=== PATIENT | female | born 1950 | race Caucasian/White ===

== ENCOUNTER 2017-06-25 05:32 | Day surgery (SDC) | payer BC ==
[2017-06-24 12:20] LABS: BASOPHILS 0.1 % (0-2); EOSINOPHILS 1.1 % (0-7); HEMATOCRIT 40.8 % (36.0-48.0); HEMOGLOBIN 14.2 g/dL (12-16); IMMATURE GRANULOCYTES 0.3 % (0-5); LYMPHOCYTES 23.7 % (15-50); MCH 34.6 pg (26.0-34.0); MCHC 34.8 g/dL (31.0-37.0); MCV 99.5 fL (80.0-100.0); MEAN PLATELET VOLUME 9.9 fL (7.4-10.4); NEUTROPHILS 66.8 % (40-80); PLATELET COUNT 320 10x3/uL (130-400); RDW 13.5 % (11.5-14.5); WBC 11.7 10x3/uL (4.8-10.8)
[2017-06-24 12:24] LABS: APTT 25.1 SECONDS (22.8-39.4); INR 0.84 (0.85-1.17); PROTIME 11.4 SECONDS (11.6-15.0)
[2017-06-24 12:30] LABS: ANION GAP 10.8 mmol/L (8-16); CALCIUM 9.1 mg/dL (8.5-10.1); CARBON DIOXIDE 30.2 mmol/L (21.0-32.0); CREATININE - SERUM 0.9 mg/dL (0.6-1.3)
[2017-06-25] VITALS (11 sets, daily range): BP systolic 120–162; BP diastolic 68–83; BMI 17.2
[~2017-06-25 05:32] MED LIST: COMBIVENT RESPIM4 GM INH; IMODIUM2 MG PO; METOPROLOL TART25 MG PO
[2017-06-26 04:00] VITALS: BP 132/73
[2017-06-26 05:54] LABS: BASOPHILS 0.1 % (0-2); EOSINOPHILS 0 % (0-7); IMMATURE GRANULOCYTES 0.1 % (0-5); LYMPHOCYTES 10.6 % (15-50); MCH 34.1 pg (26.0-34.0); MCHC 33.4 g/dL (31.0-37.0); MEAN PLATELET VOLUME 10.1 fL (7.4-10.4); MONOCYTES 7.9 % (2-11); NEUTROPHILS 81.3 % (40-80); PLATELET COUNT 307 10x3/uL (130-400); WBC 14.1 10x3/uL (4.8-10.8)
[2017-06-26 05:56] LABS: HEMATOCRIT 31.4 % (36.0-48.0); HEMOGLOBIN 10.5 g/dL (12-16); MCV 101.9 fL (80.0-100.0); RBC 3.08 10x6/uL (4.00-5.40)
[2017-06-26 06:45] LABS: ANION GAP 16.4 mmol/L (8-16); CARBON DIOXIDE 23.5 mmol/L (21.0-32.0)
[2017-06-26 06:49] LABS: CREATININE - SERUM 1.2 mg/dL (0.6-1.3); POTASSIUM - SERUM 4.9 mmol/L (3.5-5.1)
[2017-06-26 07:50] VITALS: BP 137/75
[2017-06-26 12:23] VITALS: BP 137/78
[2017-06-26] MEDS ORDERED: DILAUDID2 MG PO (13:10)
[2017-06-26] MEDS ORDERED: REGLAN10 MG PO (13:11)
--- NOTE | 2017-07-09 11:14 | OP ---
PATIENT NAME: ALVIN TERRELL MEDICAL RECORD: [id number] :54 LOCATION:D.OPS ADMISSION DATE: SURGEON: CHOLO GEORGE MD DATE OF OPERATION: 06/25/2017 PREOPERATIVE DIAGNOSES: 1. Achalasia. 2. Tobacco dependent syndrome. POSTOPERATIVE DIAGNOSES: 1. Achalasia. 2. Tobacco dependent syndrome. PROCEDURE: Laparoscopic Heller myotomy with Demarco fundoplication. SURGEON: Cholo George MD REPORT OF PROCEDURE: The patient's abdomen was prepped and draped in sterile fashion. A Veress needle was inserted in the left upper quadrant and the abdomen was insufflated. An 11-mm Visiport trocar was then inserted in the midline just above the umbilicus. I could see the Veress needle and there was no sign of any injury to bowel or surrounding structures. The Veress needle was then removed. An 11-mm trocar was then placed in the left subcostal region. A 5-mm trocar was placed in the epigastrium. A 5-mm trocar was placed in the right lateral subcostal region and a final 5-mm trocar was placed in the left lateral abdomen. A liver retractor was inserted and the left lobe of the liver was elevated. The stomach was pulled down and there was really no sign of a hiatal hernia visible. We dissected down the lesser omentum using Harmonic scalpel. I continued this dissection to the right side of the right karen. We dissected around the right side of the right karen and entered the thoracic cavity. We took down any of the thin adhesions that were present of the esophagus to the thoracic cavity. We then began our dissection of the greater curvature of the stomach by taking down the short gastrics using Harmonic scalpel. The fundus of the stomach was freed up from the short gastric attachments all the way up to the left side of the right karen. We dissected out this left side of the right karen and then entered up into the abdominal end of the thoracic cavity. At this point, we took down all the remaining adhesions and we had a 360-degree inspection far up into the patient's chest with full visualization of the patient's esophagus. The vagus nerves were seen and they appeared to be intact. We then took down the small band of fatty attachments that were present at the GE junction. With this out of the way, we were able to see the linear longitudinal outer layer muscles on the esophagus. We began dissecting these apart. We continued this dissection up and down the esophagus and on to the anterior aspect of the stomach. We continued this dissection down to the circular ring of muscular tissue. Then, we started peeling these rings of tissue apart leaving just the mucosa. We continued this dissection up about 6-7 cm up the esophagus from the GE junction and then about 3 cm down from the GE junction on to the cardia. We continued the dissection. All the muscle tissue was taken down in a linear fashion leaving just the mucosa. There was no sign of any mucosal injury visible. The patient had an OG tube present. We then elevated the esophagus and performed approximation of the esophageal hiatus with interrupted 0 Polydek times 2. There was good approximation of the tissue leaving just a large enough opening for the esophagus. We then performed a Demarco fundoplication by pulling up the fundus of the stomach anteriorly and resting it over top of the myotomy. Three sutures of 0 polydek were placed on the left OPERATIVE REPORT [id number] ALVIN TERRELL side of the fundoplication attaching the superior aspect of the fundus of the stomach to the lateral aspect of the myotomy. We then used 3 sutures to bring the fundus over top of the myotomy to the top of the bottom sutures incorporating bites of the myotomy tissue. The third middle suture incorporated a bite of the patient's diaphragm. The fundoplication appeared to rest in good position with no sign of any bleeding. We then irrigated out the abdomen thoroughly with normal saline. At this point, the 11 and 12-mm trocar site fascias were closed with interrupted 0 Vicryls. The wounds were then infused with a total of 10 mL of 0.25% Marcaine with epinephrine and then closed with subcutaneous 5-0 Monocryl. We then dressed these appropriately. COMPLICATIONS: None. CONDITION: Stable. ANESTHESIA: General endotracheal and local. BLOOD LOSS: Minimal. TRANSINT:[id number] Voice Confirmation ID: [id number] DOCUMENT ID: [id number] CHOLO GEORGE MD at 1114 CC: EMELIA GAMING MD and LIN SANDY MD [id number] DICTATION DATE: 06/25/17 1248 COBOL APPLICATION DEVELOPER: 06/25/17 1343 [facility] 06/26/17 [facility] [address] [place] [address]
== END 2017-06-26 15:15 | disposition home or self-care (01) ==
LOC: D.MS 05:32 → D.OPS 05:32 → D.SDCHOLD 05:32 → EDSTATUS 09:15 → D.SDCHOLD 09:15 → D.MS 13:00 → D.SDCHOLD 13:00 → D.MS 06-26 15:15 → D.OPS 06-26 15:15
PROVIDERS: Anesthesiology; Surgery
DX: K22.0 Achalasia of cardia (principal); F17.200 Nicotine dependence, unspecified, uncomplicated; Z01.812 Encounter for preprocedural laboratory examination

== ENCOUNTER → 2017-08-19 09:55 | Outpatient (CLI) | payer MEDICARE, OTHER ==
[2017-06-25 13:43] VITALS: BMI 17.2
[~2017-08-19 09:55] MED LIST changes: +DILAUDID2 MG PO; +REGLAN10 MG PO
== END | disposition home or self-care (01) ==
LOC: D.RAD 09:55
DX: R13.10 Dysphagia, unspecified (principal)

== ENCOUNTER 2018-05-01 07:42 | Outpatient (CLI) | payer MEDICARE, OTHER ==
[~2018-05-01] VITALS: Ht 162.6 cm; Wt 41.8 kg
--- NOTE | ~2018-05-01 | HEMODYNAMI ---
PATIENT:ALVIN TERRELL MEDICAL RECORD: [id number] : 54 LOCATION:DOTTO ADMISSION DATE: 05/01/18 Generatedon:05/01/201813:34 Patient name: ALVIN TERRELL Patient #: [id number] SSN: : Date of study: 05/01/2018 Page: Of Hemodynamic Procedure Report Patient Data Patient Demographics Procedure consent was obtained First Name: ALVIN Gender: Female Last Name: XANDER : 1950 Middle Initial: F Age: 67 year(s) Patient #: [id number] Race: Unknown Additional ID: [id number] Contact details [address]: [address] [place] [address] State: [place] City: [place] Zip code: [address] Past Medical History Allergies Allergen Reaction Date Comments Reported Codeine 05/01/2018 Other allergy 05/01/2018 ORANGES,TOMATOES AND STRAWBERRIES Admission Admission Data Admission Date: 05/01/2018 Admission Time: 7:42 Procedure Procedure Types Cath Procedure Peripheral Cath Diagnostic Procedure Abd/Extremity Extremities Peripheral vascular Intervention Stent Stent Iliac w/plasty Initial Procedure Description Procedure Date Procedure Date: 05/01/2018 Procedure Start Time: 11:45 Procedure Staff Name Function Vu Lockhart MD Performing Physician Adolfo Ren RT Monitor Pratima Hahn RT Scrub Kristne Parnell RN Nurse Procedure Data Cath Procedure Fluoroscopy Diagnostic fluoroscopy Total fluoroscopy Time: time: 10.6 min 10.6 min Diagnostic fluoroscopy Total fluoroscopy dose: 426 dose: 426 mGy mGy Contrast Material Contrast Material Type Amount (ml) Isovue 300 130 Entry Location Entry Primary Successful Side Size Upsize 1 Upsize Entry Closure Vega ccessful Closure Location (Fr) (Fr) 2 (Fr) Remarks Device Remarks Femoral Right 5 Fr 6 Fr artery Mid-Length Procedure Medications Medication Administration Route Dosage Heparin Flush Bag added to field 3 bags (1000units/500ml NS) Lidocaine 1% added to field 20 Oxygen etCO2 Nasal cannula 3 l/min Versed I.V. 1 mg Fentanyl I.V. 50 mcg Versed I.V. 1 mg Fentanyl I.V. 50 mcg Heparin Bolus I.V. 5000 units Nitroglycerin IC/IA I.A. 200 mcg Versed I.V. 1 mg Fentanyl I.V. 50 mcg Versed I.V. 1 mg Fentanyl I.V. 50 mcg Hemodynamics Rest Heart Rate: 68 (bpm) Snapshots Pre Cath Intra NCS Post Cath Vital Signs Time Heart Resp SPO2 etCO2 NIBP (mmHg) Rhythm Pain Sedation Rate (ipm) (%) (mmHg) Status Level (bpm) 11:10:55 13.5 Measuring NSR 0 (11) 10(A) , No pain 11:11:20 72 31.6 187/151(179) NSR 0 (11) 10(A) , No pain 11:15:40 69 9 28.6 202/105(161) NSR 0 (11) 10(A) , No pain 11:20:04 66 11 28.6 193/97(157) NSR 0 (11) 10(A) , No pain 11:24:27 65 20.3 188/96(160) NSR 0 (11) 10(A) , No pain 11:28:46 65 12 23.3 181/93(148) NSR 0 (11) 10(A) , No pain 11:33:05 65 13 100 35.4 179/93(143) NSR 0 (11) 10(A) , No pain 11:37:23 64 10 99 34.6 158/89(138) NSR 0 (11) 10(A) , No pain 11:41:33 64 14 100 34.6 169/94(146) NSR 0 (11) 10(A) , No pain 11:45:49 63 17 100 33.1 171/86(145) NSR 0 (11) 10(A) , No pain 11:50:03 64 12 100 27.1 186/89(146) NSR 0 (11) 10(A) , No pain 11:54:23 63 19 100 29.3 162/87(131) NSR 0 (11) 8(A) , No pain 11:58:37 66 17 100 33.9 175/83(136) NSR 0 (11) 8(A) , No pain 12:02:53 63 10 100 35.4 168/87(136) NSR 0 (11) 8(A) , No pain 12:07:09 65 16 100 35.4 174/83(138) NSR 0 (11) 8(A) , No pain 12:11:25 66 21 100 32.3 173/90(139) NSR 0 (11) 8(A) , No pain 12:15:43 65 10 100 34 173/87(136) NSR 0 (11) 10(A) , No pain 12:19:59 69 11 99 36.9 171/88(142) NSR 0 (11) 10(A) , No pain 12:24:17 69 17 100 35.3 134/80(106) NSR 0 (11) 10(A) , No pain 12:28:23 67 10 98 36.1 153/78(124) NSR 0 (11) 10(A) , No pain 12:32:35 64 14 98 33.1 155/76(122) NSR 0 (11) 10(A) , No pain 12:36:47 65 8 99 32.4 158/81(122) NSR 0 (11) 10(A) , No pain 12:40:57 64 10 99 34.6 162/87(138) NSR 0 (11) 10(A) , No pain 12:45:09 66 8 100 30.1 164/86(135) NSR 0 (11) 10(A) , No pain 12:49:25 68 8 100 40.6 148/81(121) NSR 0 (11) 10(A) , No pain 12:53:37 68 21 100 39.9 139/76(117) NSR 0 (11) 10(A) , No pain 12:57:42 67 7 100 36.9 152/83(126) NSR 0 (11) 10(A) , No pain 13:01:50 64 13 99 36.9 162/87(136) NSR 0 (11) 10(A) , No pain 13:06:00 65 8 98 37.6 180/97(156) NSR 0 (11) 10(A) , No pain 13:10:18 64 7 99 32.3 174/93(145) NSR 0 (11) 10(A) , No pain 13:14:34 66 8 100 40.6 158/90(137) NSR 0 (11) 10(A) , No pain 13:18:44 63 7 99 37.6 171/95(142) NSR 0 (11) 10(A) , No pain 13:22:58 64 7 98 39.1 172/94(134) NSR 0 (11) 10(A) , No pain 13:27:57 67 7 99 39.1 Measuring NSR 0 (11) 10(A) , No pain 13:28:18 63 5 99 39.1 178/101(152) NSR 0 (11) 10(A) , No pain 13:32:34 64 8 99 37.6 191/101(161) NSR 0 (11) 10(A) , No pain Medications Time Medication Route Dose Verified Delivered Reason Notes Effe ctiveness by by 11:25:06 Heparin Flush added 3 Vu Womack used for Bag to bags Richy Lockhart MD procedure (1000units/500ml field JENSEN NS) 11:25:20 Lidocaine 1% added 20ml Vu Womack used for to vial Richy Lockhart MD procedure field JENSEN 11:25:35 Oxygen etCO2 3 Vu Womack used for Nasal l/min Richy Lockhart MD procedure cannula 11:46:28 Versed I.V. 1 mg Vu Peterson for Parmjit Lockhart RN sedation 11:46:38 Fentanyl I.V. 50 Vu Peterson for mcg Parmjit Lockhart RN sedation 12:11:30 Versed I.V. 1 mg Vu Peterson for Parmjit Lockhart RN sedation 12:11:41 Fentanyl I.V. 50 Vu Peterson for mcg Parmjit Lockhart RN sedation 12:20:54 Heparin Bolus I.V. 5000 Vu Peterson used for units Parmjit Lockhart RN procedure 12:23:34 Nitroglycerin I.A. 200 uV Womack used for IC/IA mcg Richy Lockhart MD procedure 12:36:56 Versed I.V. 1 mg Vu Peterson for Parmjit Lockhart RN sedation 12:37:06 Fentanyl I.V. 50 Vu Peterson for mcg Parmjit Lockhart RN sedation 12:58:41 Versed I.V. 1 mg Vu Peterson for Parmjit Lockhart RN sedation 12:58:48 Fentanyl I.V. 50 Vu Peterson for [facility] Parmjit Lockhart RN sedation Procedure Log Time Note 11:01:13 Adolfo Deckermelina RT (R) (CV) sent for patient. Start room use. 11:01:33 Time tracking: Regular hours (M-F 7:00 - 5:00) 11:01:38 Plan of Care:Hemodynamics will remain stable., Cardiac rhythm will remain stable., Comfort level will be maintained., Respiratory function will remain adequate., Patient/ family verbilizes understanding of procedure., Procedure tolerated without complication., Recovers from procedure without complications.. 11:01:40 Correct patient and procedure confirmed by team. 11:01:42 Signed procedure consent form obtained from patient. 11:01:43 ECG and BP/O2 sat monitors applied to patient. 11:01:46 - 11:01:47 - 11:01:51 H&P Date Dictated: 05/01/2018 H&P Addendum completed by physician on day of procedure. (MUST COMPLETE FOR ALL OUTPATIENTS). 11:01:51 Pre-procedure instructions explained to patient. 11:01:52 Pre-op teaching completed and patient verbalized understanding. 11:01:53 Family in waiting room. 11:01:55 Patient NPO since Midnight. 11:02:01 Use device set IR Diagnostic 11:02:03 ACIST Syringe (26125) opened to sterile field. 11:02:03 ACIST Hand Control (72713) opened to sterile field. 11:02:03 ACIST Manifold (38162) opened to sterile field. 11:02:04 Bag Decanter (2002S) opened to sterile field. 11:02:04 Sterile Angiographic Pack opened to sterile field. 11:02:07 Tegaderm 4 x 4 (1626W) opened to sterile field. 11:02:41 Patient allergic to Codeine 11:03:15 Patient allergic to Other allergyORANGES,TOMATOES AND STRAWBERRIES 11:03:21 Is the patient allergic to Iodine/contrast media? No. 11:03:32 Patient diabetic? No. 11:03:40 Was the patient premedicated? Yes 11:03:44 ACC The patient was administered the following blood thiners within the last 24 hours: ACCAspirin 11:03:45 - 11:03:46 ----Pre-sedation anethsthesia assessment.---- 11:03:49 Previous problem with sedation/anesthesia? No ? 11:03:50 Snore? No 11:03:52 Sleep apnea? No 11:03:53 Deviated septum? No 11:03:56 Opens mouth fully? Yes 11:03:57 Sticks out tongue? Yes 11:04:00 Airway obstruction? No ? 11:04:02 Dentures? No ? 11:04:07 Pre procedure: right dorsailis pedis pulse Doppler 11:04:10 Pre procedure: left dorsailis pedis pulse Doppler 11:04:13 Pre procedure: right posterior tibial pulse Doppler 11:04:16 Pre procedure: left posterior tibial pulse Doppler 11:04:28 Patient pain scale 0/10 NO PAIN. 11:04:29 Sharps counted by scrub and verified by R.N. 11:04:30 Alarms reviewed by RTrever N. 11:05:26 IV patent on arrival in left wrist with 0.9% NaCl at [facility]. 11:09:06 Vital chart was started 11:20:26 Baseline sample Acquired. 11:25:06 Heparin Flush Bag (1000units/500ml NS) 3 bags added to field was administered by Vu Lockhart MD; used for procedure; 11:25:20 Lidocaine 1% 20ml vial added to field was administered by Vu Lockhart MD; used for procedure; 11:25:35 Oxygen 3 l/min etCO2 Nasal cannula was administered by Vu Lockhart MD; used for procedure; 11:44:09 Bilateral groins area was prepped with chlora-prep and draped in steril e fashion 11:44:13 Physician arrived 11:44:14 --------ALL STOP TIME OUT------ 11:44:14 Final Timeout: patient, procedure, and site verified with staff and physician. All members of the team are in agreement. 11:44:16 Bilateral groins site verified by team. 11:44:23 Sedation plan: IV Moderate Sedation Medication:Versed, Fentanyl 11:45:06 Procedure started. 11:45:06 Full Disclosure recording started 11:45:26 Local anesthetic to right femoral artery with Lidocaine 1% by Vu Lockhart MD.INITIAL ACCESS ONLY 11:45:27 TUBING Contrast Injection High Pressure (IGG530Q) opened to sterile field. 11:45:28 Micropuncture VSI 4FR kit opened to sterile field. 11:45:28 SHEATH 5FR [place] (UXY683) opened to sterile field. 11:45:29 DOC .035 wire (H58774) opened to sterile field. 11:45:29 Angiodynamics Omniflush 5Fr 65cm (82562535) opened to sterile field. 11:45:31 Access obtained with 4Fr micropunture. 11:45:41 A 5 Fr sheath was inserted into the Right Femoral artery 11:46:28 Versed 1 mg I.V. was administered by Kristen Parnell RN; for sedation; 11:46:38 Fentanyl 50 mcg I.V. was administered by Kristen Parnell RN; for sedation ; 12:01:43 TORQUE DEVICE PLASTIC .038 ( TD01) opened to sterile field. 12:02:28 GLIDE WIRE .038 180cm ANGLED (ZX3269) opened to sterile field. 12:04:47 ROADRUNNER .035 145 glide wire (Q35192) opened to sterile field. 12:07:25 SHEATH 6FR Destination (RSR01) opened to sterile field. 12:07:29 CORONEL 260 wire (W07968) opened to sterile field. 12:07:43 GLIDE CATHETER 5FR ANGLED 65cm (CG507) opened to sterile field. 12:07:53 Sheath upsized to a 6 Fr Mid-Length. 12:11:30 Versed 1 mg I.V. was administered by Kristen Parnell RN; for sedation; 12:11:41 Fentanyl 50 mcg I.V. was administered by Kristen Parnell RN; for sedation ; 12:20:54 Heparin Bolus 5000 units I.V. was administered by Kristen Parnell RN; use d for procedure; 12:23:24 INFLATOR BasixTOUCH (HY0905) opened to sterile field. 12:23:34 Nitroglycerin IC/IA 200 mcg I.A. was administered by Vu Lockhart MD; used for procedure; 12:26:35 Inflate balloon Inflation number: 1 A [place] 3 x 8 x 135 Balloon ([id number]) was prepped and advanced across the Undefined1, then inflated to 16 AIRAM for 0:00 (min:sec). 12:32:41 Entrust 8 x 80 Stent ([id number]) was deployed across Undefined1 . 12:36:56 Versed 1 mg I.V. was administered by Kristen Parnell RN; for sedation; 12:37:06 Fentanyl 50 mcg I.V. was administered by Kristen Parnell RN; for sedation ; 12:41:44 Procedure type changed to Cath procedure, Peripheral Cath Diagnostic Procedure, Abd/Extremity, Extremities, Peripheral vascular Intervention, Stent, Stent Iliac w/plasty Initial 12:41:58 Inflate balloon Inflation number: 2 A Evercross 7 x 8 x 135 Balloon ([id number]) was prepped and advanced across the Undefined1, then inflated to 10 AIRAM for 0:00 (min:sec). 12:49:34 SHEATH 6FR [place] (VEB743) opened to sterile field. 12:58:41 Versed 1 mg I.V. was administered by Kristen Parnell RN; for sedation; 12:58:48 Fentanyl 50 mcg I.V. was administered by Kristen Parnell RN; for sedation ; 13:01:00 Protege GPS 10x 40 X 120 Stent ([id number]) was deployed across Undefined1 . 13:03:18 Inflate balloon Inflation number: 3 A [place] 8 x 4 x 135 Balloon ([id number]) was prepped and advanced across the Undefined1, then inflated to 7 AIRAM for 0:00 (min:sec). 13:12:08 EXOSEAL 6Fr (EX600) opened to sterile field. 13:12:14 Procedure ended.(Physican Out) 13:17:13 Fluoroscopy time 10.60 minutes. 13:17:18 Fluoroscopy dose: 426 mGy 13:17:18 Flurop Dose total: 426 13:18:43 Insertion/operative site no bleeding no hematoma. 13:18:52 Post-op/insertion site Right Femoral artery dressed using a 4 x 4 and Tegaderm. 13:18:55 Post right femoral artery:stable 13:19:00 Post procedure instruction explained to patient.Patient verbalizes understanding. 13:19:04 Procedure and supply charges have been captured, reviewed, submitted an d are correct. 13:19:07 Post Procedure Pulses reassessed and unchanged 13:33:37 Contrast amount:Isovue 300 130ml. 13:33:45 Report given to Outpatients. 13:33:48 Patient transfered to Outpatients with Bed. 13:34:26 Vital chart was stopped Intervention Summary Intervention Notes Time ActionType Lesion and Equipment Used Action# Pressure Duration Attributes 12:26:35 Inflate Undefined1 Evercross 3 x 8 x 1 16 00:00 balloon 135 Balloon ([id number]) 12:32:41 Deploy self Undefined1 Entrust 8 x 80 1 expanding Stent stent ([id number]) 12:41:58 Inflate Undefined1 Evercross 7 x 8 x 2 10 00:00 balloon 135 Balloon ([id number]) 13:01:00 Deploy self Undefined1 Protege GPS 10x 40 1 expanding X 120 Stent stent ([id number]) 13:03:18 Inflate Undefined1 Evercross 8 x 4 x 3 7 00:00 balloon 135 Balloon ([id number]) Device Usage Item Name Manufacture Quantity Catalog Number [facility] Part rrent Minimal Lot# / Charge Number Stock Stock Serial# Code ACIST Syringe Acist Medical 1 95411 122224 955498 99 0542 20 (19028) [employer] ACIST Hand Control Acist Medical 1 68866 147278 709648 99 0965 5 (38392) Systems Inc ACIST Manifold Acist Medical 1 44609 298594 659204 99 0983 5 (46253) Systems Inc Bag Decanter Microtek 1 2001S 923093 13705 98 9325 5 (2001S) Medical Inc. Sterile Cardinal 1 [id number] 154709 99 8557 5 Angiographic Pack Health Tegaderm 4 x 4 3M 1 1626W 334890 110629 99 4435 5 (1626W) TUBING Contrast [employer] Medical 1 [id number] 720993 279572 99 9561 5 Injection High Pressure (STP068U) Micropuncture VSI VSI VASCULAR 1 7266V 831888 99 9472 5 4FR kit SOLUTIONS SHEATH 5FR Terumo 1 UIF990 566138 269442 99 6258 40 [place] (HPV155) DOC .035 wire [employer] 1 Z89476 895488 99 9606 5 (I68591) Angiodynamics Angiodynamics 1 38277844 842356 680164 99 9980 5 Omniflush 5Fr 65cm (77960836) TORQUE DEVICE [place] 1 TD01 362486 707904 99 9465 5 PLASTIC .038 ( Scientific TD01) GLIDE WIRE .038 Terumo 1 QY3823 301093 99 9986 5 180cm ANGLED (IK2137) ROADRUNNER .035 [employer] 1 E18384 303302 395033 99 9798 5 3736303 145 glide wire (K20717) SHEATH 6FR Terumo 1 RSR01 971939 08238 99 9743 5 Destination (RSR01) CORONEL 260 wire [employer] 1 R55007 495074 65568 99 9689 5 1382535 (L53071) GLIDE CATHETER 5FR Terumo 1 CG507 822203 99 9810 5 ANGLED 65cm (CG507) INFLATOR WindPipe 1 OS7351 529733 582580 99 9872 5 [id number] BasixTOUCH (OM7591) Evercross 3 x 8 x Medtronic 1 [id number] 740152 003527 99 9997 5 135 Balloon ([id number]) Entrust 8 x 80 Medtronic 1 [id number] 277151 729416 99 9998 5 [id number] Stent [id number] ([id number]) Evercross 7 x 8 x Medtronic 1 [id number] 779390 085624 99 9997 5 135 Balloon ([id number]) SHEATH 6FR Terumo 1 FWX699 253375 662451 99 6601 40 [place] (HUV452) Protege GPS 10x 40 Medtronic 1 [id number] 522634 774612 99 9998 5 K282805 X 120 Stent H088379 ([id number]) Evercross 8 x 4 x Medtronic 1 [id number] 249193 919768 99 9997 5 135 Balloon ([id number]) EXOSEAL 6Fr Cardinal 1 EX600 304127 071685 99 7628 10 [id number] (EX600) Health Signature Audit [place] Stage Time Signature Unsigned Intra-Procedure 05/01/2018 Adolfo 1:34:23 PM Gela RT (R) (CV) Signatures Monitor : Adolfo Signature : Gela RT Date : Time : [place] [id number] [place] [id number]
[2018-05-01 07:59] LABS: BASOPHILS 0.2 % (0-2); EOSINOPHILS 1.7 % (0-7); HEMATOCRIT 39.7 % (36.0-48.0); HEMOGLOBIN 13.7 g/dL (12-16); IMMATURE GRANULOCYTES 0.1 % (0-5); LYMPHOCYTES 14.1 % (15-50); MCH 30.8 pg (26.0-34.0); MCHC 34.5 g/dL (31.0-37.0); MCV 89.2 fL (80.0-100.0); MEAN PLATELET VOLUME 9.4 fL (7.4-10.4); NEUTROPHILS 75.9 % (40-80); PLATELET COUNT 353 10x3/uL (130-400); RBC 4.45 10x6/uL (4.00-5.40); RDW 14.9 % (11.5-14.5); WBC 11.9 10x3/uL (4.8-10.8)
[2018-05-01 08:14] LABS: ANION GAP 10.6 mmol/L (8-16); CALCIUM 8.8 mg/dL (8.5-10.1); CARBON DIOXIDE 28.6 mmol/L (21.0-32.0); CREATININE - SERUM 0.9 mg/dL (0.6-1.3); POTASSIUM - SERUM 4.2 mmol/L (3.5-5.1)
[2018-05-01 08:39] LABS: APTT 24.8 SECONDS (22.8-39.4); INR 0.84 (0.85-1.17); PROTIME 11.2 SECONDS (11.6-15.0)
[2018-05-01] MEDS ORDERED: BIOTIN5 MG PO (10:02)
[2018-05-01] MEDS ORDERED: CLARITIN-D1 TAB.SR1 PO (10:02)
[2018-05-01] MEDS ORDERED: BAYER ASPIRIN325 MG PO (10:03)
[2018-05-01] MEDS ORDERED: CITRUCEL500 MG PO (10:06)
[2018-05-01] MEDS ORDERED: ADVIL200 MG PO (10:08)
[2018-05-01] MEDS ORDERED: PRAVACHOL20 MG PO (10:09)
[2018-05-01] MEDS ORDERED: OMEPRAZOLE20 M1 PO (10:09)
[2018-05-01] MEDS ORDERED: FOLBIC RF TABL1 EACH PO (10:10)
[2018-05-01 10:28] VITALS: BP 185/89; Ht 162.6 cm; Wt 41.8 kg
== END 2018-05-01 16:45 | disposition home or self-care (01) ==
LOC: D.SP 07:42 → D.RAD 11:00 → D.SP 16:45
PROVIDERS: General Practice
DX: I70.222 Atherosclerosis of native arteries of extremities with rest pain, left leg (principal); Z01.812 Encounter for preprocedural laboratory examination